=== PATIENT | female | born 1990 | race Caucasian/White ===

== ENCOUNTER 2017-11-13 15:02 | Emergency (ER) | payer MEDICAID, OTHER ==
[2017-11-13 15:45] VITALS: BP 119/49; PULSE 72
[2017-11-13 15:49] VITALS: RESP 18
--- NOTE | 2017-11-13 15:50 | PD ---
HPI Travel History International Travel<30 Days: No Contact w/Intl Traveler<30Days: No History of Present Illness HPI 27 yr old at 24/4 (based on US today LORRAINE: 03/01/18) weeks with no care and currently on Subutex presents to the OB ED with lower abdominal pain. Patient states that she started having intermittent, tightening R-sided abdominal pain since last night. She has tried Excedrin w/o relief. She denies dysuria, vaginal bleeding, LOF, fever, and contractions. She has been unable to establish with an OB provider due to being on subutex. She currently sees Dr. Miriam Hampton for her Subutex prescription. She has been using Subutex since October 2016. She takes 8 mg 3 times daily. She also has a history of IV Dilaudid use. She has never been tested for hepatitis or HIV. Reports that her aunt has temporary custody of her kids. History Past Medical History Medical History: Denies Significant Hx Obstetric History Obstetric History 1 misscarriage 2 abortions 3 Past Surgical History Surgical History: No Previous Surgery Family History Family History: Negative Social History Alcohol Use: No Tobacco Use: No Substance Abuse: Yes (Subutex 8mg TID, hx of IV dilaudid ) Review of Systems Except as stated in HPI: all other systems reviewed are Neg Physical Exam Narrative GENERAL: Well-nourished, well-developed patient. SKIN: Warm and dry. HEAD: Normocephalic and atraumatic. EYES: No scleral icterus. No injection or drainage. ENT: No nasal drainage noted. Mucous membranes pink. Airway patent. NECK: Supple, trachea midline. No JVD. CARDIOVASCULAR: Regular rate and rhythm without murmurs, gallops, or rubs. RESPIRATORY: Breath sounds equal bilaterally. No accessory muscle use.. ABDOMEN/GI: Abdomen soft, non-tender, bowel sounds present, no rebound, no guarding FHT's: Category: 1 Baseline: 130s Reactive: yes Variability: moderate Decels: none EXTREMITIES: No cyanosis or edema. BACK: Nontender without obvious deformity. No CVA tenderness. NEUROLOGICAL: Awake and alert. Motor and sensory grossly within normal limits. Five out of 5 muscle strength in all muscle groups. Normal speech. Data Data Vital Signs Reviewed: Yes Orders Orders Vital Signs (Adult) .ON ADMISSION (11/13/17 15:42) ^ Labor Status (11/13/17 15:42) Urinalysis - C+S If Indicated (11/13/17 15:42) ^ Non Stress Test (11/13/17 15:42) Us Ob Pelvis >14 Wks Fetus (11/13/17 ) MDM Plan 27 yr old at 24/4 weeks (based on US today LORRAINE: 03/01/18) with no care and currently on Subutex presents to the OB ED with lower abdominal pain. -Intrauterine , category 1, reassuring -OB US demonstrates 24 weeks gestation, LORRAINE 03/01/18, no anomalies seen, normal amniotic fluid -UDS and UA pending -Advised patient to take Tylenol and use heating pad for pad -Hydrate regularly -Patient was given information to establish with [facility] sdw Dr. Velasquez Diagnosis Diagnosis: Primary Impression: 24 weeks gestation of Disposition: DISCHARGE HOME Condition: Stable Carrie Akers MD R1 November 13, 2017 15:50
[2017-11-13 18:41] LABS: BACTERIA, URINE RARE /hpf; BILIRUBIN, URINE NEG (NEG); BLOOD, URINE NEG (NEG); CALCIUM OXALATE CRYSTALS,URINE MOD /hpf; GLUCOSE,URINE NEG (NEG); KETONE, URINE TRACE mg/dL (NEG); MUCUS URINE MANY /lpf (OCC); NITRITE,URINE NEG (NEG); PH, URINE 5.5 (5.0-8.5); SQUAMOUS EPITHELIAL CELL URINE 5 /hpf (0-5); URINE COLOR YELLOW (YELLW/STRAW); URINE LEUKOCYTE ESTERASE NEG (NEG)
== END 2017-11-13 18:21 | disposition home or self-care (01) ==
LOC: HOBED 15:02
DX: O26.892 Other specified pregnancy related conditions, second trimester (principal); R10.30 Lower abdominal pain, unspecified; Z3A.24 24 weeks gestation of pregnancy
CPT/HCPCS: 76805; 80307; 81001